=== PATIENT | female | born 1980 | race Caucasian/White ===

== ENCOUNTER 2024-06-08 10:36 | Emergency (ER) | payer MEDICAID, SELFPAY ==
--- NOTE | ~2024-06-08 | XR_ITS ---
XR chest 2V Ordering provider: Beverly Brandon APRN History: 44 years Female with . productive cough, abnormal lung sounds RLL . Comparison: None. FINDINGS: MEDIASTINUM: The cardiac silhouette is not enlarged. LUNGS: No infiltrates, effusions or pneumothorax. OTHER: No free air under the diaphragm. IMPRESSION: No acute cardiopulmonary pathology. Reviewed, dictated and finalized at location A. RT DOCUMENTS CLERK
[2024-06-08 10:57] VITALS: BP 106/64; PULSE 101; RESP 16; TEMP 36.8; O2SAT 98
--- NOTE | 2024-06-08 11:24 | ED.URI ---
HPI - URI/Sore Throat General Chief Complaint: Upper Respiratory Infection Stated Complaint: throat hurts,facial pain,leg pain,chest issue Time Seen by Provider: 06/08/24 11:24 Source: patient, RN notes reviewed and old records reviewed Mode of arrival: ambulatory Limitations: no limitations History of Present Illness HPI Narrative: Patient with 2 day history of cough, body aches, headache. Reports subjective fever, has not taken temperature. Has taken 1 dose of pseudoephedrine, has not taken any Tylenol or ibuprofen. She is in no distress, including respiratory distress. Reports that she is concerned because she has 2 small children at home, wants to know she has any communicable illness Related Data Allergies Allergy/AdvReac Type Severity Reaction Status Date / Time No Known Allergies Allergy Verified 06/08/24 11:33 Review of Systems Review of Systems: All systems reviewed & are unremarkable except as noted in HPI and below Constitutional: Constitutional: Reports no additional constitutional complaints ENT: Reports system reviewed and no additional complaints, except as documented, Reports nasal congestion, Reports nasal discharge and Reports post nasal drip Cardiovascular: Cardiovascular: Reports no additional cardiovascular complaints Respiratory: Respiratory: Reports no additional respiratory complaints, Reports chest congestion and Reports cough Gastrointestinal: Gastrointestinal: Reports no additional gastrointestinal complaints Musculoskeletal: Musculoskeletal: Reports as per HPI, Reports back pain and Reports myalgias PMFSH Comments At the time of my signature, I reviewed and agree with the nursing past medical, surgical, social, and family history. There is no relevant family history pertinent to the patient complaint. Exam Const: General: cooperative, no acute distress, alert and awake Orientation/consciousness: oriented to person, oriented to place and oriented to time HENMT: Head: normal to inspection Ears: TM's normal bilaterally Mouth: Yes moist mucous membranes Throat: posterior oropharynx abnormal erythema; no edema and no exudates Resp: Effort & Inspection: normal respiratory effort and able to speak in complete sentences Auscultation: clear to auscultation bilaterally, no crackles, no rales, rhonchi right lower and no wheezes Cardio: Palpation: normal PMI Rate: regular rate Rhythm: regular rhythm Heart sounds: S1 normal heart sound present and S2 normal heart sound present Neuro: General: oriented to person, oriented to place and oriented to time Cranial nerves: Yes CN's II-XII intact bilaterally Psych: Appearance: grossly normal Thought process: Normal thought process present Insight: Good insight present (Psych) Judgement: Good judgement present (Psych) Course Course Level of Care: Express Care Visit Vital Signs Vital signs: Vital Signs Temperature 98.3 F 06/08/24 10:57 Pulse Rate 101 H 06/08/24 10:57 Respiratory Rate 16 06/08/24 10:57 Blood Pressure 106/64 06/08/24 10:57 Pulse Oximetry 98 06/08/24 10:57 Oxygen Delivery Room Air 06/08/24 10:57 Temperature 98.3 F 06/08/24 10:57 Pulse Rate 101 H 06/08/24 10:57 Respiratory Rate 16 06/08/24 10:57 Blood Pressure 106/64 06/08/24 10:57 Pulse Oximetry 98 06/08/24 10:57 Oxygen Delivery Room Air 06/08/24 10:57 Reviewed MDM - URI/Sore Throat MDM Narrative Medical decision making narrative: Negative COVID, negative flu. Negative chest x-ray. Patient is heavy smoker, symptomatic. Will treat as bronchitis with bronchodilator, steroid burst, azithromycin for additive anti-inflammatory affect. Patient nontoxic appearing, stable for discharge home. Follow with primary care provider. Emergency department for new or worse symptoms. Discharge instructions reviewed with patient, as well as provided in writing per nursing staff. The instructions also include specific and strict return/GO TO THE ER as well as f/u information. All questions have been answered, and the patient deny any further questions with discharge and discharge plan. Some parts of this dictation were generated by voice recognition software and may contain typographical and/or grammatical inaccuracies. Differential Diagnosis Differential diagnosis: Likely upper respiratory infection, sinusitis, viral infection, bronchitis and influenza Medical Records Attestation: I reviewed the patient's medical records. Lab Data Attestation: I reviewed the patient's lab results. Lab results narrative: Negative COVID, negative flu Imaging Data My impression: No acute processes noted Radiologist's impression: Patient: Araceli Mandujano : 1980 MR#: [id number] Age: 44 Acct:[id number] Loc: [facility] ADM Date: 06/08/24Attending Dr: Ordering Physician: Beverly Brandon FNP Date of Service: 06/08/24 Procedure(s): XR chest 2V Accession Number(s): [id number] cc: Beevrly Brandon FNP; UNKNOWN,DOCTOR~ XR chest 2V Ordering provider: Beverly Brandon APRN History: 44 years Female with . productive cough, abnormal lung sounds RLL . Comparison: None. FINDINGS: MEDIASTINUM: The cardiac silhouette is not enlarged. LUNGS: No infiltrates, effusions or pneumothorax. OTHER: No free air under the diaphragm. IMPRESSION: No acute cardiopulmonary pathology. Reviewed, dictated and finalized at location [facility]. [facility] Dictated By: Orlin Wade MD 06/08/24 1153 Signed By: <Electronically signed by Orlin Wade MD in OV> 06/08/24 1154 Discharge Plan Discharge Clinical Impression: Bronchitis Patient Disposition: Home, Self-Care Condition: Stable Instructions: Antibiotic Form, Acute Bronchitis (ED) Additional Instructions: Take all medications as prescribed. Follow with primary care provider. Emergency department for new or worse symptom Patient Language: [place] Prescriptions: New azithromycin 250 mg tablet See Rx Instructions .ROUTE .COMPLEX Qty: 6 0RF Rx Instructions: For 250 mg dose pack: take 500 mg today (day 1), then 250 mg for 4 days (days 2-5) prednisone 50 mg tablet 50 mg PO DAILY Qty: 5 0RF albuterol sulfate [Ventolin HFA] 90 mcg/actuation HFA aerosol inhaler 2 puff inhalation QID PRN (Reason: shortness of breath or wheezing) Qty: 8.5 0RF Follow-up/Referrals: UNKNOWN,DOCTOR [Primary Care Provider] - Stand Alone Forms: Work/School Release IP Time of Disposition: 12:06
[2024-06-08 11:53] LABS: EDINFLUASCREEN Negative (Negative); EDINFLUBSCREEN Negative (Negative)
[2024-06-08 14:18] LABS: EDCOVIDSCREEN Negative (Negative)
== END 2024-06-08 12:14 | disposition home or self-care (01) ==
PROVIDERS: Emergency Provider Nurse Practitioner Family
DX: J40 Bronchitis, not specified as acute or chronic (principal); Z20.822 Contact with and (suspected) exposure to COVID-19
CPT/HCPCS: 71046; 87426; 87804; 99213; G0463